=== PATIENT | male | born 1975 | race Caucasian/White ===

== ENCOUNTER 2017-06-30 23:04 | Emergency (ER) | payer BC ==
[~2017-06-30] VITALS: Ht 180.3 cm; Wt 119.7 kg
[~2017-06-30 23:04] MED LIST: CELEXA20 MG PO; LAMICTAL100 MG PO; MOTRIN600 MG PO; PEPTO BISMOL240 ML PO; ZESTORETIC 20-1 EAC1 PO
[2017-07-01 02:14] LABS: APPEARANCE CLEAR ((CLEAR)); BILIRUBIN NEGATIVE; BLOOD NEGATIVE; COLOR YELLOW ((YELLOW)); GLUCOSE (STRIP) NEGATIVE; KETONES NEGATIVE; LEUKOCYTES NEGATIVE; NITRITE NEGATIVE; PROTEIN (STRIP) 30; SPECIFIC GRAVITY 1.023 (1.000-1.030); UCUL ADDED? NO; UROBILINOGEN 0.2 MG/DL (0.2-1.0)
[2017-07-01 02:36] LABS: HEMATOCRIT 39.7 % (38.0-50.0); HEMOGLOBIN 13.6 G/DL (12.5-16.6); MCH 29.1 PG (29.0-34.0); MCHC 34.3 G/DL (30.0-36.0); MCV 84.8 FL (86-99); PLATELET COUNT 261 K/uL (156-360); RBC DIS.WIDTH-CV 12.8 % (11.8-14.6); RBC DIS.WIDTH-SD 39.3 % (39-53); RED BLOOD COUNT 4.68 M/uL (4.00-5.50); WHITE BLOOD COUNT 8.5 K/uL (4.1-10.2)
[2017-07-01 02:42] LABS: ALBUMIN 4.1 g/dL (3.2-4.8); CHLORIDE 108 mEq/L (99-109); SODIUM 144 mEq/L (136-147)
[2017-07-01 02:45] LABS: GLUCOSE 109 mg/dL (70-99); TOTAL PROTEIN 6.4 g/dL (6.4-8.3)
[2017-07-01 02:47] LABS: TOTAL BILIRUBIN 0.5 mg/dL (0.0-1.0)
[2017-07-01 02:48] LABS: ALKALINE PHOSPHATASE 70 IU/L (3-129); GFR ESTIMATE (CALCULATED) > 59 mL/min/ (58.99-99999)
[2017-07-01 02:49] LABS: UREA NITROGEN (BUN) 13 mg/dL (9-23)
[2017-07-01 02:50] LABS: AST (GOT) 14 IU/L (2-34)
[2017-07-01 02:51] LABS: ALT (GPT) 22 IU/L (3-49)
[2017-07-01] MEDS ORDERED: AUGMENTIN875 MG PO (04:58)
[2017-07-01] MEDS ORDERED: MIRALAX119 GM PO (05:00)
[2017-07-01 05:09] VITALS: BP 137/84
== END 2017-07-01 05:18 | disposition home or self-care (01) ==
LOC: EME 23:04
PROVIDERS: Emergency Medicine
PROC: 0D9QXZZ Drainage of Anus, External Approach (ICD-10-PCS; principal; 2017-07-01)
DX: K61.0 Anal abscess (principal); R56.9 Unspecified convulsions; F32.9 Major depressive disorder, single episode, unspecified; Z87.891 Personal history of nicotine dependence; Z88.1 Allergy status to other antibiotic agents
CPT/HCPCS: 74177; 80053; 81003; 85027; 99281; 99284; J7030

== ENCOUNTER → 2017-07-29 | Outpatient (CLI) | payer BC ==
[~2017-07-29] MED LIST changes: +ADVIL200 MG PO; +AUGMENTIN875 MG PO; +CLEOCIN300 MG PO; +MEN'S MULTI-VI1 EACH PO; +MIRALAX119 GM PO; +NORCO 5/3251 TABLET PO; +ZOCOR20 MG PO; +[UNRECOGNIZED DRUG - OTHER] PO
== END | disposition home or self-care (01) ==
LOC: CDC
DX: Z01.810 Encounter for preprocedural cardiovascular examination (principal); I10 Essential (primary) hypertension
CPT/HCPCS: 93000

== ENCOUNTER 2017-08-02 08:37 | Day surgery (SDC) | payer BC ==
[~2017-08-02] VITALS: Ht 182.9 cm; Wt 118.4 kg
[~2017-08-02 08:37] MED LIST changes: -CLEOCIN300 MG PO; -NORCO 5/3251 TABLET PO
[2017-08-02 10:01] VITALS: BP 131/82
[2017-08-02] MEDS ORDERED: NORCO 5/3251 TABLET PO (11:15)
[2017-08-02] MEDS ORDERED: CLEOCIN300 MG PO (11:17)
[2017-08-02 13:05] VITALS: BP 112/75
[2017-08-02 14:05] VITALS: BP 111/74
== END 2017-08-02 14:32 | disposition home or self-care (01) ==
LOC: SDC
PROVIDERS: Surgery
DX: K61.1 Rectal abscess (principal); E66.9 Obesity, unspecified; Z68.34 Body mass index [BMI] 34.0-34.9, adult; Z88.1 Allergy status to other antibiotic agents
CPT/HCPCS: 82948; J0131; J1170; J1580; J2250; J2405; J3010; J7050; S0020; S0030